=== PATIENT | male | born 2000 | race Caucasian/White ===

== ENCOUNTER 2020-03-21 12:33 | Emergency (ER) | payer OTHER ==
--- NOTE | 2020-03-21 14:45 | Emergency Department Report ---
ED General Adult HPI - General Chief complaint: Skin/Abscess/Foreign Body Stated complaint: RIGHT HIP BUMP Time Seen by Provider: 03/21/20 13:44 Source: patient Mode of arrival: Ambulatory Limitations: No Limitations - History of Present Illness Initial comments: This is a 19-year-old male presents the ED complaining of right buttock pain that initially began about 2 months ago. Patient states he followed up with his primary care physician who gave him a shot and some topical ointment. Patient states that he is out of the ointment but the wound on his right buttock is not healing. Patient states that it drains pus and blood sometimes. Patient states that he experiences pain in that area usually worsens at night. She denies fever/chills/nausea or vomiting/inability to have a bowel movement or any urinary complaints. - Related Data Previous Rx's Medication Instructions Recorded Last Taken Type Clindamycin [Clindamycin CAP] 300 mg PO Q8H #21 cap 03/21/20 Unknown Rx Neomycin/Bacitracin/Polymyxinb 1 applic TP TID #28 gm 03/21/20 Unknown Rx [Triple Antibiotic Ointment] Allergies Allergy/AdvReac Type Severity Reaction Status Date / Time No Known Allergies Allergy Unverified 03/21/20 12:39 ED Review of Systems ROS: Stated complaint: RIGHT HIP BUMP Other details as noted in HPI Comment: All other systems reviewed and negative ED Past Medical Hx - Past Medical History Previous Medical History?: No - Surgical History Past Surgical History?: No - Social History Smoking Status: Never Smoker Substance Use Type: None - Medications Home Medications: Home Medications Medication Instructions Recorded Confirmed Last Taken Type Clindamycin [Clindamycin CAP] 300 mg PO Q8H #21 cap 03/21/20 Unknown Rx Neomycin/Bacitracin/Polymyxinb 1 applic TP TID #28 gm 03/21/20 Unknown Rx [Triple Antibiotic Ointment] ED Physical Exam - General Limitations: No Limitations General appearance: alert, in no apparent distress - Head Head exam: Present: atraumatic, normocephalic - Eye Eye exam: Present: normal appearance - ENT ENT exam: Present: mucous membranes moist - Neck Neck exam: Present: normal inspection - Respiratory Respiratory exam: Present: normal lung sounds bilaterally. Absent: respiratory distress - Cardiovascular Cardiovascular Exam: Present: regular rate, normal rhythm. Absent: systolic murmur, diastolic murmur, rubs, gallop - GI/Abdominal GI/Abdominal exam: Present: soft, normal bowel sounds - Rectal Rectal exam: Present: deferred, other (2 smalll abrasion wound noted to the right inner cheek, no continuous bleeding,). Absent: hemorrhoids, mass - Extremities Exam Extremities exam: Present: normal inspection - Back Exam Back exam: Present: normal inspection - Neurological Exam Neurological exam: Present: alert, oriented X3 - Psychiatric Psychiatric exam: Present: normal affect, normal mood - Skin Skin exam: Present: warm, dry, intact, normal color. Absent: rash ED Course Vital Signs 03/21/20 03/21/20 12:39 15:15 Temperature 98.2 F Pulse Rate 94 H 78 Respiratory 20 18 Rate Blood Pressure 128/82 Blood Pressure 130/69 [Left] O2 Sat by Pulse 100 100 Oximetry ED Medical Decision Making - Medical Decision Making This is a 19-year-old female who presented with inner right buttock wound most likely from an infection. Discussed antibiotic therapy with patient patient to follow-up with a primary care physician. Vital signs are normal patient is in no acute distress patient understand instructions. I encouraged the patient to continue using his topical triple antibiotic ointment. Critical care attestation.: If time is entered above; I have spent that time in minutes in the direct care of this critically ill patient, excluding procedure time. ED Disposition Clinical Impression: Right buttock pain, Open wound of right buttock Disposition: DC- TO HOME OR SELFCARE Is pt being admited?: No Does the pt Need Aspirin: No Condition: Stable Instructions: Acute Wound Care (ED) Additional Instructions: Make sure to follow up with the primary care physician as discussed. Take all your medications as you've been prescribed. If you have any worsening symptoms or develop new symptoms please return to ED immediately. Prescriptions: Clindamycin [Clindamycin CAP] 300 mg PO Q8H #21 cap Neomycin/Bacitracin/Polymyxinb [Triple Antibiotic Ointment] 1 applic TP TID #28 gm Referrals: [facility] [Outside] - 3-5 Days Forms: Work/School Release Form(ED) Time of Disposition: 14:54
[2020-03-21 15:15] VITALS: BP 130/69
== END 2020-03-21 15:15 | disposition home or self-care (01) ==
LOC: ED 12:33
DX: S31.819A Unspecified open wound of right buttock, initial encounter (principal); M76.01 Gluteal tendinitis, right hip; Z79.899 Other long term (current) drug therapy; X58.XXXA Exposure to other specified factors, initial encounter; Y93.89 Activity, other specified; Y92.89 Other specified places as the place of occurrence of the external cause; Y99.8 Other external cause status
CPT/HCPCS: 99282

== ENCOUNTER 2020-04-11 08:00 | Outpatient (CLI) | payer OTHER ==
[2020-04-11] MEDS ORDERED: LIDOCAINE (4%) 40 MG/ML TOPICAL SOLN 50 ML BOTTLE TP ONE (09:00)
[2020-04-11] MEDS ORDERED: SODIUM CHLORIDE 0.9% IRR 500 ML BOTTLE IR NR (09:16)
== END 2020-04-11 08:01 | disposition home or self-care (01) ==
LOC: MERGE 08:00 → WOUND 08:00
PROVIDERS: ATTEND Surgery
DX: L02.31 Cutaneous abscess of buttock (principal)
CPT/HCPCS: 99215; G0463

== ENCOUNTER 2020-04-15 15:08 | Outpatient (CLI) | payer OTHER ==
[2020-04-15] MEDS ORDERED: LIDOCAINE (4%) 40 MG/ML TOPICAL SOLN 50 ML BOTTLE TP ONE (15:13)
== END 2020-04-15 15:09 | disposition home or self-care (01) ==
LOC: WOUND 15:08
PROVIDERS: ATTEND Surgery
DX: L02.31 Cutaneous abscess of buttock (principal)
CPT/HCPCS: 99214; G0463

== ENCOUNTER 2020-04-18 10:50 | Outpatient (CLI) | payer OTHER | END 2020-04-18 10:51 | disposition home or self-care (01) | LOC: WOUND 10:50 | PROVIDERS: ATTEND Surgery | DX: L02.31 Cutaneous abscess of buttock (principal) | CPT/HCPCS: 99213; G0463 ==

== ENCOUNTER 2020-04-22 14:24 | Outpatient (CLI) | payer OTHER ==
[2020-04-22] MEDS ORDERED: LIDOCAINE (4%) 40 MG/ML TOPICAL SOLN 50 ML BOTTLE TP ONE (14:26)
== END 2020-04-22 14:25 | disposition home or self-care (01) ==
LOC: WOUND 14:24
PROVIDERS: ATTEND Surgery
DX: L02.31 Cutaneous abscess of buttock (principal)
CPT/HCPCS: 99214; G0463

== ENCOUNTER 2020-04-25 09:27 | Outpatient (CLI) | payer OTHER | END 2020-04-25 09:28 | disposition home or self-care (01) | LOC: WOUND 09:27 | PROVIDERS: ATTEND Surgery | DX: L02.31 Cutaneous abscess of buttock (principal) | CPT/HCPCS: 99212; G0463 ==

== ENCOUNTER 2020-05-20 13:26 | Outpatient (CLI) | payer OTHER ==
[2020-05-20] MEDS ORDERED: LIDOCAINE (4%) 40 MG/ML TOPICAL SOLN 50 ML BOTTLE TP ONE (14:00)
== END 2020-05-20 13:27 | disposition home or self-care (01) ==
LOC: WOUND 13:26
PROVIDERS: ATTEND Surgery
DX: L02.31 Cutaneous abscess of buttock (principal)
CPT/HCPCS: 99214; G0463